=== PATIENT | male | born 1980 | race Caucasian/White ===

== ENCOUNTER 2021-09-28 21:38 | Emergency (ER) | payer OTHER ==
[2021-09-28 21:52] VITALS: BP 129/78; PULSE 78; TEMP 98.6; BMI 29.4
== END 2021-09-29 01:22 | disposition left against medical advice (07) ==
LOC: JER 21:38
DX: G50.1 Atypical facial pain (principal); R07.9 Chest pain, unspecified
CPT/HCPCS: 99281-25

== ENCOUNTER 2021-09-30 20:24 | Emergency (ER) | payer OTHER ==
[2021-09-30 20:32] VITALS: BP 124/88; PULSE 70; TEMP 98.7; BMI 28.5
== END 2021-09-30 23:25 | disposition home or self-care (01) ==
LOC: FER 20:24
DX: S20.212A Contusion of left front wall of thorax, initial encounter (principal); Y04.8XXA Assault by other bodily force, initial encounter
CPT/HCPCS: 71101-TC-LT-FY; 99283-25

== ENCOUNTER 2022-05-28 23:29 | Emergency (ER) | payer OTHER ==
[2022-05-28 23:37] VITALS: BP 126/85; PULSE 74; RESP 17; TEMP 97.6; BMI 27.6
[2022-05-29] MEDS ORDERED: KETOROLAC TROMETHAMINE 30 MG/1 ML VIAL IM ONE (00:55)
[2022-05-29] MEDS ORDERED: KETOROLAC TROMETHAMINE 30 MG/1 ML VIAL ONE (00:55)
== END 2022-05-29 01:14 | disposition home or self-care (01) ==
LOC: JERFT 23:29
PROC: 3E023GC Introduction of Other Therapeutic Substance into Muscle, Percutaneous Approach (ICD-10-PCS; principal; 2022-05-28)
DX: M62.830 Muscle spasm of back (principal); V49.40XA Driver injured in collision with unspecified motor vehicles in traffic accident, initial encounter
CPT/HCPCS: 99284-25

== ENCOUNTER 2023-08-02 13:23 | Emergency (ER) | payer OTHER ==
[2023-08-02 13:39] VITALS: BP 130/84; PULSE 79; RESP 18; TEMP 98; BMI 27.9
[2023-08-02] MEDS ORDERED: IBUPROFEN 400 MG TABLET (FP) PO ONE (15:18)
[2023-08-02] MEDS: IBUPROFEN 400 MG TABLET (FP) PO ONE (15:20)
== END 2023-08-02 17:40 | disposition home or self-care (01) ==
LOC: JERFT 13:23
DX: H92.01 Otalgia, right ear (principal); B00.1 Herpesviral vesicular dermatitis; R51.9 Headache, unspecified; R21 Rash and other nonspecific skin eruption; R59.0 Localized enlarged lymph nodes
CPT/HCPCS: 87651; 99283-25

== ENCOUNTER 2023-12-23 01:04 | Emergency (ER) | payer OTHER ==
[2023-12-23 01:11] VITALS: TEMP 98.8; BMI 27.9
[2023-12-23 01:54] LABS: BASO % 0.3 % (0-2.0); EOS % 2.1 % (0-4.5); HEMATOCRIT 45.2 % (35.4-49); HEMOGLOBIN 15.9 GM/dL (11.7-16.9); LYMPH % 43.1 % (8-40); MCHC 35.1 g/dl (32.0-35.9); MEAN CELL VOLUME 85.4 fl (80-96); MEAN PLT VOLUME 7.6 fl (7.5-11.1); MONO % 7.6 % (3.8-10.2); NEUT % 46.9 % (42.8-82.8); PLATELET COUNT 261 10^3/uL (134-434); RBC 5.29 M/mm3 (4.00-5.60); RDW 12.6 % (11.9-15.9); WHITE BLOOD COUNT 7.2 K/mm3 (4.0-10.0)
[2023-12-23 02:00] LABS: INR 0.96 (0.83-1.09)
[2023-12-23 02:03] LABS: ACTIVATED PTT 36.7 SECONDS (25.2-36.5)
[2023-12-23 02:14] LABS: POTASSIUM 3.4 mmol/L (3.5-5.1)
[2023-12-23 02:16] LABS: ALBUMIN 4.2 g/dl (3.4-5.0); CALCIUM 9.4 mg/dL (8.5-10.1)
[2023-12-23 02:20] LABS: CREATININE 1.2 mg/dL (0.55-1.3)
[2023-12-23 02:21] LABS: BILIRUBIN,TOTAL 0.6 mg/dL (0.2-1); TOT PROT 7.6 g/dl (6.4-8.2)
[2023-12-23 03:08] VITALS: BP 138/91; PULSE 79; RESP 16
[2023-12-23 03:13] LABS: HIV INTERPRETATION NEGATIVE (NEGATIVE)
== END 2023-12-23 04:35 | disposition home or self-care (01) ==
LOC: JER 01:04
DX: I10 Essential (primary) hypertension (principal); R42 Dizziness and giddiness
CPT/HCPCS: 36415; 71045-TC-FY; 80053; 84484; 85025; 85610; 85730; 86803; 87389; 93005; 93010; 99285-25

== ENCOUNTER 2024-02-22 20:13 | Emergency (ER) | payer OTHER ==
[2024-02-22 20:17] VITALS: BP 140/92; PULSE 82; RESP 16; TEMP 97.8; BMI 28.7
[2024-02-22] MEDS ORDERED: ACETAMINOPHEN 500 MG TABLET (FP) ONE (20:45)
[2024-02-22] MEDS: ACETAMINOPHEN 500 MG TABLET (FP) PO ONE (20:49)
== END 2024-02-22 22:29 | disposition home or self-care (01) ==
LOC: JERFT 20:13
DX: S86.212A Strain of muscle(s) and tendon(s) of anterior muscle group at lower leg level, left leg, initial encounter (principal); V03.10XA Pedestrian on foot injured in collision with car, pick-up truck or van in traffic accident, initial encounter
CPT/HCPCS: 93971-TC; 99284-25